=== PATIENT | female | born 1965 | race Caucasian/White ===

== ENCOUNTER 2016-12-22 11:22 | Emergency (ER) | payer BC ==
[2016-12-22 11:40] VITALS: BP 129/79; PULSE 74; TEMP 98.2; BMI 35.5
--- NOTE | 2016-12-22 12:37 | PDOC ---
History of Present Illness - General Chief Complaint: Pain Stated Complaint: SWOLLEN LEGS (REFERRED) Time Seen by Provider: 12/22/16 12:25 History Source: Patient Exam Limitations: No Limitations - History of Present Illness Initial Comments: 12/22/16 13:28 Patient is a 51-year-old female presents for evaluation for left leg, calf pain. Patient reports on Wednesday she was had walked down 13 flights of stairs. That night experienced pain. Woke up the next day with a bruise to the left posterior upper thigh.as seen in urgent care today, sent here for US to rule out DVT. No erythema, edema. Denies any chest pain or shortness of breath. No back pain. 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 Past Medical History: Denies. Allergies: No known allergies Medications: Family History: Non-contributory Social History: Denies smoking, alcohol use, or IVDU Review of Systems GENERAL/CONSTITUTIONAL: No fever or chills. No weakness. No weight change. CARDIOVASCULAR: No chest pain or shortness of breath. RESPIRATORY: No cough, wheezing, or hemoptysis. MUSCULOSKELETAL: No joint or muscle swelling or pain. No neck or back pain. Left posterior leg pain SKIN : No rash or easy bruising. No erythema, edema or bruising. Physical Exam: GENERAL: The patient is awake, alert, and fully oriented, in no acute distress. LUNGS: Breath sounds equal, clear to auscultation bilaterally. No wheezes, and no crackles. HEART: Regular rate and rhythm, normal S1 and S2 without murmur, rub or gallop. ABDOMEN: Soft, nontender, normoactive bowel sounds. No guarding, no rebound. No masses. No bruising or abrasions MUSCULOSKELETAL: [Normal range of motion, no edema. No clubbing or cyanosis. No cords, erythema, or tenderness. Tenderness to calf, positive Homans. NEUROLOGICAL: Cranial nerves II through XII grossly intact. Normal speech, normal gait. SKIN: Warm, Dry, normal turgor, no rashes or lesions noted. No erythema, edema or bruising. 12/22/16 13:41 Past History - Past Medical History Allergies/Adverse Reactions: Allergies Allergy/AdvReac Type Severity Reaction Status Date / Time Penicillins Allergy Verified 12/22/16 11:36 Home Medications: Ambulatory Orders NK [No Known Home Medication] 12/22/16 Asthma: Yes - Surgical History Abdominal Surgery: Yes (margaret chawla) - Psycho/Social/Smoking Cessation Hx Anxiety: No Suicidal Ideation: No Smoking History: Never smoked Have you smoked in the past 12 months: Yes Number of Cigarettes Smoked Daily: 5 Information on smoking cessation initiated: Yes Hx Alcohol Use: No Drug/Substance Use Hx: No Substance Use Type: None *Physical Exam - Vital Signs Last Vital Signs Temp Pulse Resp BP Pulse Ox 98.2 F 74 18 129/79 100 12/22/16 11:37 12/22/16 11:37 12/22/16 11:37 12/22/16 11:37 12/22/16 11:37 ED Treatment Course - RADIOLOGY Radiology Studies Ordered: Category Date Time Status DUPLEX VASCUL US-1 LEG [US] Stat Ultrasound 12/22/16 12:36 Ordered Medical Decision Making - Medical Decision Making 12/22/16 13:41 A/P: Patient here for evaluation of left posterior leg pain. Sent ultrasound to rule out DVT 12/22/16 16:48 US was negative for DVT. Strain to leg. Antiinflammatories for pain. Follow up with ortho as needed. I discussed the physical exam findings, ancillary test results and final diagnoses with the patient. I answered all of the patient's questions. The patient was satisfied with the care received and felt comfortable with the discharge plan and treatment plan. The patient will call to arrange follow-up and will return to the Emergency Department with any new, persistent or worsening symptoms. *DC/Admit/Observation/Transfer Diagnosis at time of Disposition: Leg strain - Discharge Dispostion Disposition: HOME Condition at time of disposition: Good Admit: No - Referrals Referrals: Faye Guzman [Primary Care Provider] - Call tomorrow - Patient Instructions Additional Instructions: Increase fluids Motrin for pain Follow up with ortho in one week if pain persists. - Post Discharge Activity Work/School Note: Back to Work
== END 2016-12-22 15:22 | disposition home or self-care (01) ==
LOC: JER 11:22 → JERFT 11:22
DX: S86.112A Strain of other muscle(s) and tendon(s) of posterior muscle group at lower leg level, left leg, initial encounter (principal); S76.312A Strain of muscle, fascia and tendon of the posterior muscle group at thigh level, left thigh, initial encounter; X50.3XXA Overexertion from repetitive movements, initial encounter; X50.0XXA Overexertion from strenuous movement or load, initial encounter; Y93.01 Activity, walking, marching and hiking; Y92.89 Other specified places as the place of occurrence of the external cause
CPT/HCPCS: 93971-TC; 99281-25